=== PATIENT | male | born 1940 | race Caucasian/White ===

== ENCOUNTER 2021-07-29 14:54 | Emergency (ER) | payer BC, MEDICARE, OTHER ==
--- NOTE | 2021-07-29 15:42 | EDM.PDOC ---
ED HPI GENERAL MEDICAL PROBLEM - General Chief Complaint: Gastrointestinal Problem Stated Complaint: [facility] Time Seen by Provider: 07/29/21 15:25 Source of Information: Reports: Patient History Limitations: Reports: No Limitations - History of Present Illness INITIAL COMMENTS - FREE TEXT/NARRATIVE: Patient is 31-year-old male presenting to the emergency room with a chief complaint of abdominal pain. Patient has no past surgical history and his abdomen no other significant history at this time. Patient reports pain started this morning shortly after starting bowel prep for colonoscopy and endoscopy that he is scheduled for tomorrow. Patient states he feels cramping diffusely in his abdomen and had large amounts of stool. Patient reports pain improving after having bowel movement. Patient denies any associated fever, nausea, vomiting. No blood in stool. Patient states he had dark stool several months ago but it subsequently resolved. No interventions performed prior to arrival. Last colonoscopy was done 10 years ago and was reported as normal. - Related Data Allergies Allergy/AdvReac Type Severity Reaction Status Date / Time No Known Allergies Allergy Verified 07/29/21 15:10 Home Meds: Home Meds Brimonidine Tartrate [Brimonidine Tartrate 0.2% Ophth Soln] 1 drop OP DAILY 07/29/21 [History] Latanoprost/Pf [Latanoprost 0.005% Eye Drop] 1 drop OP DAILY 07/29/21 [History] Montelukast Sodium 10 mg PO DAILY 07/29/21 [History] Rosuvastatin Calcium 10 mg PO DAILY 07/29/21 [History] Past Medical History HEENT History: Reports: Glaucoma Cardiovascular History: Reports: High Cholesterol Social & Family History - Tobacco Use Tobacco Use Status *Q: Never Tobacco User - Caffeine Use Caffeine Use: Reports: Coffee - Recreational Drug Use Recreational Drug Use: No ED ROS GENERAL - Review of Systems Review Of Systems: See Below Free Text/Narrative/Comment: In addition to that documented in the HPI above, the additional ROS was obtained: Constitutional: Denies fevers or chills Eyes: Denies vision changes ENMT: Denies sore throat CV: Denies chest pain Resp: Denies SOB GI: Per HPI : Denies painful urination MSK: Denies recent trauma Skin: Denies new rashes Neuro: Denies new numbness or tingling or weakness Endocrine: Denies unexpected weight loss Heme: Denies bleeding disorders ED EXAM, GI/ABD - Physical Exam Exam: See Below Text/Narrative:: I have reviewed the triage vital signs Const: Well nourished, well developed, appears stated age Eyes: Pupils Equal and reactive to light bilaterally, no conjunctival injection HENT: No signs of trauma or swelling, Neck supple without meningismus CV: Regular Rate Rhythm, Warm, well-perfused extremities RESP: Unlabored respiratory effort GI: soft, non-tender, non-distended, no masses MSK: No gross deformities appreciated Skin: Warm, dry. No rashes Neuro: Alert, manager of sustainability II-XII grossly intact. Sensation and motor function of extremities grossly intact. Psych: Appropriate mood and affect. Course - Vital Signs Last Recorded V/S: Last Vital Signs Temp 35.7 C L 07/29/21 15:06 Pulse 73 07/29/21 15:06 Resp 20 07/29/21 15:06 BP 175/72 H 07/29/21 15:06 Pulse Ox 100 07/29/21 15:06 - Orders/Labs/Meds Labs: Laboratory Tests 07/29/21 07/29/21 Range/Units 15:20 15:20 WBC 6.61 (4.23-9.07) K/mm3 RBC 4.73 (4.63-6.08) M/mm3 Hgb 13.9 (13.7-17.5) gm/dl Hct 41.8 (40.1-51.0) % MCV 88.4 (79.0-92.2) fl MCH 29.4 (25.7-32.2) pg MCHC 33.3 (32.2-35.5) g/dl RDW Std Deviation 43.3 (35.1-43.9) fL Plt Count 236 (163-337) K/mm3 MPV 9.2 L (9.4-12.3) fl Neut % (Auto) 63.0 (34.0-67.9) % Lymph % (Auto) 23.0 (21.8-53.1) % Coffee % (Auto) 8.9 (5.3-12.2) % Eos % (Auto) 4.2 (0.8-7.0) Baso % (Auto) 0.6 (0.1-1.2) % Neut # (Auto) 4.16 (1.78-5.38) K/mm3 Lymph # (Auto) 1.52 (1.32-3.57) K/mm3 Coffee # (Auto) 0.59 (0.30-0.82) K/mm3 Eos # (Auto) 0.28 (0.04-0.54) K/mm3 Baso # (Auto) 0.04 (0.01-0.08) K/mm3 Sodium 140 (136-145) mEq/L Potassium 3.7 (3.5-5.1) mEq/L Chloride 102 (98-107) mEq/L Carbon Dioxide 23 (21-32) mEq/L Anion Gap 18.7 H (5-15) BUN 18 (7-18) mg/dL Creatinine 1.0 (0.7-1.3) mg/dL Est Cr Clr Drug Dosing 58.81 mL/min Estimated GFR (MDRD) > 60 (>60) mL/min BUN/Creatinine Ratio 18.0 (14-18) Glucose 128 H (70-99) mg/dL Calcium 9.8 (8.5-10.1) mg/dL Total Bilirubin 1.4 H (0.2-1.0) mg/dL AST 27 (15-37) U/L ALT 22 (16-63) U/L Alkaline Phosphatase 77 (46-116) U/L Total Protein 7.7 (6.4-8.2) g/dl Albumin 4.2 (3.4-5.0) g/dl Globulin 3.5 gm/dL Albumin/Globulin Ratio 1.2 (1-2) Lipase 82 (73-393) U/L Departure - Departure Time of Disposition: 16:14 Disposition: Home, Self-Care 01 Clinical Impression: Abdominal pain - Discharge Information *PRESCRIPTION DRUG MONITORING PROGRAM REVIEWED*: Not Applicable *COPY OF PRESCRIPTION DRUG MONITORING REPORT IN PATIENT LESTER: Not Applicable Referrals: PCP,None [Primary Care Provider] - Forms: ED Department Discharge Additional Instructions: Please follow-up with your GI appointment tomorrow and continue to undergo bowel prep for colonoscopy/endoscopy. Return to the emergency room should your symptoms worsen at all. Sepsis Event Note (ED) - Evaluation Sepsis Screening Result: No Definite Risk - Focused Exam Vital Signs: Vital Signs Temp Pulse Resp BP Pulse Ox 07/29/21 15:06 35.7 C L 73 20 175/72 H 100 - Assessment/Plan Assessment:: Patient is an 81-year-old male presenting with abdominal cramping and diarrhea. Unremarkable ER course. Vital signs remained stable while in the emergency room. Patient had a benign abdominal exam. Differential diagnosis considered including small bowel obstruction, pancreatitis, perforated peptic ulcer, diverticulitis. Laboratory studies reviewed and unremarkable. Alternative diagnosis is secondary to bowel prep. Patient does feel better after having bowel movements. Will recommend follow-up with his appointment tomorrow. Return if worsening. All questions were addressed and as per patient agrees with plan of care.
== END 2021-07-29 17:10 | disposition home or self-care (01) ==
LOC: JD.ED 14:54
DX: R10.84 Generalized abdominal pain (principal); E78.00 Pure hypercholesterolemia, unspecified; Z79.899 Other long term (current) drug therapy
CPT/HCPCS: 36415; 80053; 83690; 85025; 99284